=== PATIENT | female | born 1975 | race Two or more races ===

== ENCOUNTER 2024-04-29 10:44 | Emergency (ER) | payer OTHER ==
[~2024-04-29] VITALS: Ht 160 cm; Wt 58.1 kg
[2024-04-29 10:56] VITALS: BP 119/74; O2SAT 99
[2024-04-29] MEDS ORDERED: CLIMARA1 EAC3 (10:58)
[2024-04-29] MEDS ORDERED: NATESTO7.32 GM (10:59)
[2024-04-29] MEDS ORDERED: FAMOTIDINE/PF 20 MG in 0.9 % SODIUM CHLORIDE 8 ML IV PUSH STA (11:35)
[2024-04-29] MEDS ORDERED: 0.9 % SODIUM CHLORIDE 1,000 ML IV SCH (11:45)
[2024-04-29] MEDS ORDERED: PIPERACILLIN/TAZOBACTAM SODIUM 3.375 GM VIAL IV ONE ×2 (11:45→11:53)
[2024-04-29] MEDS ORDERED: ONDANSETRON HCL 2 MG/ML VIAL IV ONE (11:45)
[2024-04-29] MEDS ORDERED: DIATRIZOATE MEGLUMINE, SODIUM 30 ML BOTTLE PO ONE (11:45)
[2024-04-29] MEDS ORDERED: KETOROLAC TROMETHAMINE 30 MG VIAL IV ONE (11:45)
[2024-04-29] MEDS ORDERED: KETOROLAC TROMETHAMINE 30 MG VIAL ONE (11:52)
[2024-04-29] MEDS ORDERED: FAMOtidine 200mg/20ml VIAL ONE (11:53)
[2024-04-29] MEDS ORDERED: ONDANSETRON HCL 2 MG/ML VIAL ONE (11:53)
[2024-04-29] MEDS ORDERED: DIATRIZOATE MEGLUMINE, SODIUM 30 ML BOTTLE ONE (11:53)
[2024-04-29 12:31] LABS: HEMATOCRIT 43.9 % (36.0-45.00); HEMOGLOBIN 14.8 g/dL (12.0-15.00); MEAN CORPUSCULAR HEMOGLOBIN 32.6 pg (27.00-32.0); MEAN CORPUSCULAR HGB CONC 33.6 g/dl (32.0-36.0); PLATELET COUNT 203 K/uL (150-450); RED BLOOD COUNT 4.52 M/uL (4.00-6.00); RED CELL DISTRIBUTION WIDTH 12.7 % (11.5-14.5)
[2024-04-29 13:06] LABS: ALBUMIN 3.8 gm/dL (3.4-5.0); BILIRUBIN TOTAL 0.63 mg/dL (0.3-1.2); BILIRUBIN,CONJUGATED 0.13 mg/dL (0.0-0.2); BILIRUBIN,UNCONJUGATED 0.5 mg/dL (0.0-0.6); CALCIUM 9.1 mg/dL (8.5-10.1); CREATININE SERUM 0.77 mg/dL (0.55-1.02); GFR 80.35; GLOBULINA 3.3 G/DL (2.4-3.5); POTASSIUM 3.62 mEq/L (3.5-5.1); TOTAL PROTEIN 7.1 gm/dL (6.4-8.2)
[2024-04-29] MEDS ORDERED: MIRALAX510 GM PO (16:00)
== END 2024-04-29 16:49 | disposition home or self-care (01) ==
LOC: ER 10:47
PROVIDERS: General Practice
DX: R10.32 Left lower quadrant pain (principal); R10.31 Right lower quadrant pain; K59.00 Constipation, unspecified; Z88.2 Allergy status to sulfonamides